=== PATIENT | female | born 1965 | race Caucasian/White ===

== ENCOUNTER 2016-07-15 11:28 | Emergency (ER) | payer MEDICAID ==
[~2016-07-15] VITALS: Ht 167.6 cm; Wt 81.6 kg
[~2016-07-15 11:28] MED LIST: DOCU50CA2 PO; FLUT250A IN; LORA-205; MORP15TA PO; NOR10T PO; ONDA8TAB6 PO; TIZA2CAP7 PO
[2016-07-15 11:56] VITALS: BP 139/84
[2016-07-15 12:30] LABS: Urine Bilirubin Negative (Negative); Urine Blood Negative /uL (Negative); Urine Ca Oxalate Crystal FEW (None Seen); Urine Color Yellow (Yellow); Urine Glucose Normal (Normal); Urine Ketone Negative (Negative); Urine Mucus FEW (None Seen); Urine Nitrite Negative (Negative); Urine RBC 4 /hpf (0 - 4); Urine Squamous Epithelial Cell FEW /hpf (<5)
== END 2016-07-15 14:01 | disposition left against medical advice (07) ==
LOC: EDUNIT# 11:28 → ER 11:31
DX: R10.9 Unspecified abdominal pain (principal); Z53.21 Procedure and treatment not carried out due to patient leaving prior to being seen by health care provider
CPT/HCPCS: 81001; 93005

== ENCOUNTER 2017-11-14 00:03 | Emergency (ER) | payer MEDICAID ==
[~2017-11-14] VITALS: Ht 160 cm; Wt 68.0 kg
[2017-11-14 00:16] VITALS: BP 111/74
[2017-11-14 00:38] LABS: Basophils # (auto) 0.1 uL; Basophils % (auto) 1.3 % (0.0-2.0); Eosinophils # (auto) 0.3 uL; Eosinophils % (auto) 3.2 % (0.0-7.0); Hematocrit 42.7 % (36.0-46.0); Hemoglobin 14.5 g/dL (12.2-16.2); Lymphocytes # (auto) 3.1 uL; Lymphocytes % (auto) 38.4 % (10.0-50.0); Mean Corpuscular Hemoglobin 31.1 pg (28.0-32.0); Mean Corpuscular Volume 91.4 fL (80.0-100.0); Monocytes # (auto) 0.8 uL; Monocytes % (auto) 9.5 % (0.0-12.0); Neutrophils # (auto) 3.9 uL; Neutrophils % (auto) 47.6 % (37.0-80.0); Platelet Count (auto) 207 10^3/uL (140-450); Red Blood Cells 4.68 10^6/uL (4.0-5.20); Red Cell Distribution Width 13.6 % (11.8-14.3); White Blood Cell 8.1 10^3/uL (4.4-10.8)
[2017-11-14 00:52] LABS: INR 0.96 (0.9-1.15); Partial Thromboplastin Time 30.3 sec (23.78-33.04); Prothrombin Time 10.3 sec (9.27-12.13)
[2017-11-14 01:02] LABS: Alanine Aminotransferase 39 U/L (13-56); Albumin 3.8 g/dL (3.4-5.0); Amylase 57 U/L (25-115); Anion Gap 7 (5-15); Aspartate Aminotransferase 32 U/L (15-37); Blood Urea Nitrogen 16 mg/dL (7-18); Calcium 9.2 mg/dL (8.5-10.1); Carbon Dioxide 29 mmol/L (21-32); Chloride 105 mmol/L (98-107); GFR African American 92 mL/min; GFR Non-African American 76 mL/min; Glucose 107 mg/dL (74-106); Lipase 172 U/L (73-393); Magnesium 2.3 mg/dL (1.6-2.6); Potassium 4.5 mmol/L (3.5-5.1); Sodium 141 mmol/L (136-145)
[2017-11-14 01:07] LABS: Alkaline Phosphatase 135 U/L (45-117); Bilirubin, Total 0.5 mg/dL (0.2-1.0)
== END 2017-11-14 00:30 | disposition left against medical advice (07) ==
LOC: EDBD 00:03 → ER 00:03
DX: R10.9 Unspecified abdominal pain (principal); Z53.21 Procedure and treatment not carried out due to patient leaving prior to being seen by health care provider
CPT/HCPCS: 36415; 80053; 82150; 83690; 83735; 83880; 84484; 85025; 85610; 85730; 93005

== ENCOUNTER 2019-01-20 14:40 | Emergency (ER) | payer MEDICAID ==
[~2019-01-20 14:40] MED LIST changes: +ONDA-143 PO; -ONDA8TAB6 PO
[2019-01-20 14:53] VITALS: BP 115/77
[2019-01-20] MEDS ORDERED: KETOROLAC TROMETH 60MG/2ML VIAL IM ONE (15:15)
== END 2019-01-20 16:44 | disposition home or self-care (01) ==
LOC: EDSEX 14:40 → EDBD 14:40 → ER 14:45
DX: M54.6 Pain in thoracic spine (principal); M54.5 Low back pain; M79.18 Myalgia, other site; J44.9 Chronic obstructive pulmonary disease, unspecified; E11.9 Type 2 diabetes mellitus without complications; K21.9 Gastro-esophageal reflux disease without esophagitis; F17.210 Nicotine dependence, cigarettes, uncomplicated; Z90.710 Acquired absence of both cervix and uterus; Z87.442 Personal history of urinary calculi; Z87.11 Personal history of peptic ulcer disease; Z86.39 Personal history of other endocrine, nutritional and metabolic disease; Z88.2 Allergy status to sulfonamides; Z79.899 Other long term (current) drug therapy
CPT/HCPCS: 72070; 72100; 96372; 99283; J1885

== ENCOUNTER 2025-02-26 12:52 | Emergency (ER) | payer MEDICAID ==
[~2025-02-26] VITALS: Ht 167.6 cm; Wt 100.0 kg
[2025-02-26 13:14] VITALS: BP 141/90; PULSE 95; RESP 16; TEMP 98.3; O2SAT 80
--- NOTE | 2025-02-26 14:09 | ED.PDOC ---
History of Present Illness HPI Comments HPI: Dimitrios Uncooperative 60 y.o female presents to the ED for an evaluation of a trachea tube dislodgement last night Patient reports a total of 14 surgeries to throat given hx of throat cancer, states had a laryngectomy tube placed 4 months ago and mentions that a piece had dislodged and broke off leaving stoma exposed. Patient is fearful that the site will close. Patient denies any other symptoms or pain. Denies SOB and is not in any respiratory distress Initial Vitals BP: 141/90 HR: 95 RR: 16 O2: Temp: 98.3 F Past Medical History: Throat cancer Past Surgical History: laryngectomy tube, multiple throat surgeries due to throat cancer. Social History: Denies ETOH, smoking, and drug use. Allergies: Egg shells, influenza vaccine, and sulfa antibiotics HPI: Poor Historian. REVIEW OF SYSTEMS: CONSTITUTIONAL: Denies acute: fever, diaphoresis, chills, generalized weakness. HEAD: Denies acute: headache, photophobia Eyes: Denies acute: Double vision, vision loss, eye pain, eye discharge. EARS: Denies acute: tinnitus, hearing loss, ear discharge, ear pain, THROAT: Denies acute: sore throat, swelling, difficulty swallowing , pain with swallowing, change in voice. NECK: Denies acute: neck pain, neck swelling, stiff neck. HEART: Denies acute : chest pain, palpitations, LUNGS: Denies acute: SOB, wheezing, cough, hemoptysis ABDOMEN: Denies acute: abdominal pain, Nausea, Vomiting, diarrhea, melena , hematemesis, hematochezia SKIN: Denies acute: rash, redness, lesions, itchiness. EXTREMITIES: Denies acute: calf pain, numbness, tingling, weakness, denies pain in extremity. Denies acute: Low back pain. Neuro: Denies acute: focal neurological deficit, motor or sensory focal neurological deficit, tremors, seizure like activity, confusion, dizziness, change in mental status, loss of bowel or bladder function, cauda equina like symptoms. : Denies acute: dysuria, hematuria, flank pain, increase in urinary frequency. PSYCH: Denies acute: hallucination, suicidal ideation, homicidal ideation. FEMALE: Denies acute: abnormal vaginal bleeding, foul odor, unusual discharge. PHYSICAL EXAM: General: -----no---acute distress, awake and alert. Uncooperative Head: normocephalic, atraumatic. Neck: supple, trachea is midline, no swelling. Noted tracheostomy hole in her neck. Eyes:, no erythema, no purulent discharge, no proptosis, no icterus. Lungs: no apparent respiratory distress, Able to speak in full sentences. Neuro: Awake, Alert, oriented to name, self, situation, follows commands Skin: no petechia, no purpura, no cyanosis, non-pale, not jaundice. Makes eye contact. moves all four extremities. Face: no apparent facial droop. Ambulating in the ED independently. ED COURSE: DISCLAIMER: This medical document was created using an electronic medical record system with voice recognition software and computerized dictation system. Although this document has been carefully reviewed, there might still be some phonetic and typographical errors. Occasional wrong-word or "sound-alike" substitutions may have occurred due to the inherent limitations of voice recognition software. These areas are purely typographical due to imperfections of the software programs and do not reflect any compromise in the patient's medical care. Please read the chart carefully and recognize, using context, where these substitutions have occurred. Chief Complaint: Tube Replacement Time Seen by MD: 13:20 Primary Care Provider: NONE Reviewed Notes: Allergies Allergies: Coded Allergies: Sulfa Antibiotics (Verified Allergy, Severe, HIVES, 03/09/15) Egg Shells (Verified Allergy, Unknown, 06/25/15) Uncoded Allergies: FLU SHOT (Allergy, Mild, 06/25/15) Home Meds Reported Medications Morphine Sulfate (ORAMORPH SR) 15 Mg Tab, 15 MG PO BID, TAB 06/26/15 Fluticasone Propionate (Flovent Diskus) 250 Mcg Aer, 250 MCG IN, AER 06/26/15 Ondansetron (Zofran) 8 Mg Tab, 1 TAB PO Q8HR, #30 TAB 1 Refill 06/26/15 Tizanidine Hydrochloride (TIZANIDINE HCL) 2 Mg Cap, 1 MG PO DAILY, CAP 06/26/15 Docusate Sodium (Colace) 50 Mg Cap, 50 MG PO, CAP 1/31/16 Hydrocodone-Acetaminophen ([place] 10/325MG) 1 Tab Tb, 1 TAB PO TID, #90 TAB 06/26/15 Lorazepam (Ativan) 1 Mg Tab 01/06/10 Information Source: Patient Mode of Arrival: Ambulatory Was a procedure done? Was a procedure done?: No Differential Dx Considerations may include: Tubal replacement, infection, obstruction, occlusion, respiratory failure X-Ray, Labs, Meds, VS Vital Signs Date Time Temp Pulse Resp B/P (MAP) Pulse Ox O2 Delivery O2 Flow Rate FiO2 02/26/25 13:14 98.3 95 16 141/90 80 98.3 Time of 1ST Reevaluation: 13:20 Reevaluation 1ST: Unchanged Patient Education/Counseling: Diagnosis, Treatment Family Education/Counseling: Other Comments [facility]aste pulmonology to come to bedside for consultation and evaluation. Patient did not want to wait. She requested a specific tracheostomy type which we did not carry in our facility. RT were at bedside trying to appease the patient in any way possible but she was not being reasonable and decided to leave shortly after her presentation. She said she is going straight to [facility]. She signed AMA. Patient in no acute respiratory distress Departure 1 Departure Time of Disposition: 00:00 Impression: Primary Impression: Left against medical advice Additional Impressions: Tracheostomy complication Tracheostomy dependence Tracheostomy malfunction Disposition: LEFT AGAINST MEDICAL ADVICE Condition: Other Additional Instructions: Patient left against medical advice. She said she is going straight to [facility]. Discharged With: Self Critical Care Note Critical Care Time?: No I personally scribed for MARIA EUGENIA TRIVEDI DO ([email or web address]) on 02/26/25 at 14:09. Electronically submitted by Bindu Jaimes ([facility]). MARIA EUGENIA TRIVEDI DO Feb 26, 2025 14:09
== END 2025-02-26 14:15 | disposition left against medical advice (07) ==
LOC: ER 12:52
DX: J95.03 Malfunction of tracheostomy stoma (principal); Z91.0120 Allergy to eggs, unspecified; Z88.7 Allergy status to serum and vaccine; Z88.2 Allergy status to sulfonamides; Z85.819 Personal history of malignant neoplasm of unspecified site of lip, oral cavity, and pharynx; Z79.891 Long term (current) use of opiate analgesic; Z79.51 Long term (current) use of inhaled steroids; Z79.899 Other long term (current) drug therapy; Y84.8 Other medical procedures as the cause of abnormal reaction of the patient, or of later complication, without mention of misadventure at the time of the procedure